=== PATIENT | female | born 1985 | race Hispanic/Latino ===

== ENCOUNTER 2018-07-30 05:57 | Emergency (ER) | payer OTHER ==
[2018-07-30 06:04] VITALS: O2SAT 100
[2018-07-30] MEDS ORDERED: Sodium Chloride 0.9% 1,000 ML IV STA ×2 (06:20→11:33)
[2018-07-30 06:41] LABS: BASO % 0.2 % (0.0-2.0); EOS # 0.1 K/uL (0.0-0.7); EOS % 0.9 % (0.0-4.0); HEMOGLOBIN 14.5 g/dL (12.0-16.0); LYMPH # 0.8 K/uL (1.0-4.3); LYMPH % 5.5 % (20.0-40.0); MEAN CELL VOLUME 89.4 fl (81.0-99.0); MEAN CORPUSCULAR HEMOGLOBIN 29.3 pg (27.0-31.0); MEAN CORPUSCULAR HGB CONC 32.8 g/dL (33.0-37.0); MONO # 1.3 K/uL (0.0-0.8); MONO % 8.7 % (0.0-10.0); NEUT % 84.7 % (50.0-75.0); NRBC % 0.1 % (0.0-0.0); PLATELET COUNT 293 K/uL (130-400); RBC 4.95 Mil/uL (3.80-5.20); RED CELL DISTRIBUTION WIDTH 13.5 % (11.5-14.5); WHITE BLOOD COUNT 15.3 K/uL (4.8-10.8)
[2018-07-30 06:49] LABS: ALB/GLOB RATIO 1.2 (1.0-2.1); ALBUMIN 4.1 g/dL (3.5-5.0); ALT/SGPT 39 U/L (9-52); AST/SGOT 24 U/L (14-36); BLOOD UREA NITROGEN 15 mg/dl (7-17); CALCIUM 8.7 mg/dL (8.4-10.2); GFR NON-AFRICAN AMERICAN > 60
--- NOTE | 2018-07-30 07:24 | ED PDOC ---
HPI: Abdomen Time Seen by Provider: 07/30/18 07:04 Chief Complaint (Nursing): Abdominal Pain Chief Complaint (Provider): Abdominal Pain History Per: Patient History/Exam Limitations: no limitations Onset/Duration Of Symptoms: Hrs (@last night) Current Symptoms Are (Timing): Still Present Location Of Pain/Discomfort: Epigastric Quality Of Discomfort: Cramping Associated Symptoms: Nausea, Vomiting, Diarrhea. denies: Fever Additional Complaint(s): Bhumi Bazan is a 33 year old female with a past medical history of GERD, who presents to the emergency department, complaining of abdominal pain, associated with nausea, vomiting and diarrhea, onset was last night. The pain is located in the epigastric area and crampy in nature. Patient reports that she was eating mozzarella sticks, chicken fingers, wings and beer for dinner last night. She denies having any fever or bloody stool. PMD: no provider Past Medical History Reviewed: Historical Data, Nursing Documentation, Vital Signs Vital Signs: Last Vital Signs Temp 98.7 F 07/30/18 05:59 Pulse 94 H 07/30/18 05:59 Resp 22 07/30/18 05:59 BP 114/88 07/30/18 05:59 Pulse Ox 100 07/30/18 05:59 - Medical History PMH: GERD - Surgical History Surgical History: No Surg Hx - Family History Family History: States: Unknown Family Hx - Home Medications Home Medications: Ambulatory Orders Medication Instructions Recorded Dicyclomine [Dicyclomine HCl] 10 mg PO Q8 #10 cap 07/30/18 Famotidine [Pepcid] 20 mg PO Q12 #20 tab 07/30/18 Ondansetron [Zofran] 4 mg PO Q8H #10 tab 07/30/18 - Allergies Allergies/Adverse Reactions: Allergies Allergy/AdvReac Type Severity Reaction Status Date / Time amoxicillin Allergy SWELLING Verified 07/30/18 06:01 peanut Allergy SHORTNESS Verified 07/30/18 06:01 OF BREATH Review of Systems ROS Statement: Except As Marked, All Systems Reviewed And Found Negative Constitutional: Negative for: Fever Gastrointestinal: Positive for: Nausea, Vomiting, Abdominal Pain, Diarrhea. Negative for: Melena, Hematochezia Physical Exam - Reviewed Nursing Documentation Reviewed: Yes Vital Signs Reviewed: Yes - Physical Exam Appears: Positive for: Non-toxic, No Acute Distress Head Exam: Positive for: ATRAUMATIC, NORMOCEPHALIC Skin: Positive for: Normal Color, Warm, Dry Eye Exam: Positive for: Normal appearance, EOMI, PERRL ENT: Positive for: Normal ENT Inspection Neck: Positive for: Normal, Painless ROM, Supple Cardiovascular/Chest: Positive for: Regular Rate, Rhythm. Negative for: Murmur Respiratory: Positive for: Normal Breath Sounds. Negative for: Respiratory Di stress Gastrointestinal/Abdominal: Positive for: Tenderness (epigastric and bilateral lower quadrant tenderness) Back: Positive for: Normal Inspection. Negative for: L CVA Tenderness, R CVA Tenderness, Vertebral Tenderness Extremity: Positive for: Normal ROM. Negative for: Pedal Edema, Deformity Neurologic/Psych: Positive for: Alert, Oriented (x3) - Laboratory Results Result Diagrams: 07/30/18 06:20 07/30/18 06:20 - ECG O2 Sat by Pulse Oximetry: 100 (RA) Pulse Ox Interpretation: Normal - Progress Re-evaluation Time: 14:16 Condition: Improved (Pain improved, no vomiting) Medical Decision Making Medical Decision Making: Time: 713 Impression: abdominal pain, considering Gastritis vs. Peptic ulcer disease Plan: Will order Pepcid, Zofran, IV fluids and will order CT abd/pelvis to rule out other pathology including diverticulitis and colitis. --CT abd and pelvis IV contrast --Lipase --Cbc with differential --Bentyl 10 mg PO --Pepcid 20 mg IVP --Sodium chloride 1,000 ml --Zofran [address] abd/pelvis FINDINGS: LOWER THORAX: Unremarkable. LIVER: In the posterior segment of the right hepatic lobe superiorly a 1.6 cm hyperdensity similar to the enhancement of other vessels in the area. However no tracking of a vessel can be corroborated here-no precontrast enhanced images are available. A consideration is a enhancing hemangioma. However no prior studies to assess for stability is available. Correlation with the right upper quadrant ultrasound targeted to the liver is advised. No ductal dilatation. GALLBLADDER AND BILE DUCTS: Unremarkable. PANCREAS: Unremarkable. No gross lesion or ductal dilatation. SPLEEN: Unremarkable. ADRENALS: Unremarkable. No mass. KIDNEYS AND URETERS: Unremarkable. No hydronephrosis. No solid mass. VASCULATURE: Unremarkable. No aortic aneurysm. No aortic atherosclerotic calcification or mural plaque present. BOWEL: . No obstruction. No gross mural thickening. A diffuse trace enteritis is not excluded on this exam. Correlate clinically APPENDIX: The appendix is not identified. No pericecal inflammatory changes are noted. PERITONEUM: No significant appearing free fluid. No free air. LYMPH NODES: Unremarkable. No enlarged lymph nodes. BLADDER: Unremarkable. REPRODUCTIVE: Uterus appears unremarkable. There is mild bilateral form this to each adnexa this can be seen with bilateral benign ovarian follicular cystic changes-if indicated, consider correlation with pelvic ultrasound. BONES: No acute fracture. OTHER FINDINGS: None. IMPRESSION: No bowel obstruction or free air. The appendix is not identified. However no CT evidence of pericecal inflammatory changes noted. No diverticulitis seen. Nonspecific appearance to the small bowel-a a minimal diffuse enteritis cannot be excluded. For this correlate clinically. A 1.6 cm posterior segment right hepatic lobe lesion is noted. This may represent a hemangioma. No precontrast enhanced images are available. Correlate clinically with any earlier outside exams-perhaps abdominal ultrasounds or CT studies to assess stability. If no such exams exist in this no positive oncological history, consider correlation with liver ultrasound-this could therefore be utilize for ultrasound baseline and continuous follow-up to ensure stability. Benign etiology based on the available history at this time is favored. Another consideration would be MRI of the liver without with contrast enhancement for characterization. Clinical follow-up recommended. Scribe Attestation: Documented by Rex Farias, acting as a scribe for Laureano Jeffrey MD. Provider Scribe Attestation: All medical record entries made by the Scribe were at my direction and personally dictated by me. I have reviewed the chart and agree that the record accurately reflects my personal performance of the history, physical exam, medical decision making, and the department course for this patient. I have also personally directed, reviewed, and agree with the discharge instructions and disposition. Disposition - Clinical Impression Clinical Impression: Gastroenteritis, Hemangioma - Patient ED Disposition Is Patient to be Admitted: No - Disposition Referrals: Dwight Galarza MD, PhD [Staff Provider] - Disposition: Routine/Home Disposition Time: 14:17 Condition: FAIR Prescriptions: Dicyclomine [Dicyclomine HCl] 10 mg PO Q8 #10 cap Famotidine [Pepcid] 20 mg PO Q12 #20 tab Ondansetron [Zofran] 4 mg PO Q8H #10 tab Instructions: Gastroenteritis (ED) Forms: [employer] (French)
[2018-07-30 07:47] LABS: LIPASE 60 U/L (23-300)
[2018-07-30] MEDS ORDERED: Iohexol 300 100 ML IJ ONE (08:12)
[2018-07-30] MEDS ORDERED: Sodium Chloride 0.9% 50 ML IV ONE (08:13)
[2018-07-30 09:59] LABS: EOSINOPHIL 1 % (0-7); LYMPHOCYTE 8 % (20-50); MONOCYTE 11 % (0-10); NEUTROPHIL 80 % (42-75); TOTAL CELLS COUNTED 100
[2018-07-30 10:00] LABS: PLATELET ESTIMATE NORMAL (NORMAL)
--- NOTE | 2018-07-30 11:26 | CT ---
Date of service: 07/30/2018 PROCEDURE: CT Abdomen and Pelvis with contrast HISTORY: Abd pain COMPARISON: None. TECHNIQUE: Contrast dose: 95 cc Omnipaque 300 Radiation dose: Total exam DLP = 664.19 mGy-cm. This CT exam was performed using one or more of the following dose reduction techniques: Automated exposure control, adjustment of the mA and/or kV according to patient size, and/or use of iterative reconstruction technique. FINDINGS: LOWER THORAX: Unremarkable. LIVER: In the posterior segment of the right hepatic lobe superiorly a 1.6 cm hyperdensity similar to the enhancement of other vessels in the area. However no tracking of a vessel can be corroborated here-no precontrast enhanced images are available. A consideration is a enhancing hemangioma. However no prior studies to assess for stability is available. Correlation with the right upper quadrant ultrasound targeted to the liver is advised. No ductal dilatation. GALLBLADDER AND BILE DUCTS: Unremarkable. PANCREAS: Unremarkable. No gross lesion or ductal dilatation. SPLEEN: Unremarkable. ADRENALS: Unremarkable. No mass. KIDNEYS AND URETERS: Unremarkable. No hydronephrosis. No solid mass. VASCULATURE: Unremarkable. No aortic aneurysm. No aortic atherosclerotic calcification or mural plaque present. BOWEL: . No obstruction. No gross mural thickening. A diffuse trace enteritis is not excluded on this exam. Correlate clinically APPENDIX: The appendix is not identified. No pericecal inflammatory changes are noted. PERITONEUM: No significant appearing free fluid. No free air. LYMPH NODES: Unremarkable. No enlarged lymph nodes. BLADDER: Unremarkable. REPRODUCTIVE: Uterus appears unremarkable. There is mild bilateral form this to each adnexa this can be seen with bilateral benign ovarian follicular cystic changes-if indicated, consider correlation with pelvic ultrasound. BONES: No acute fracture. OTHER FINDINGS: None. IMPRESSION: No bowel obstruction or free air. The appendix is not identified. However no CT evidence of pericecal inflammatory changes noted. No diverticulitis seen. Nonspecific appearance to the small bowel-a a minimal diffuse enteritis cannot be excluded. For this correlate clinically. A 1.6 cm posterior segment right hepatic lobe lesion is noted. This may represent a hemangioma. No precontrast enhanced images are available. Correlate clinically with any earlier outside exams-perhaps abdominal ultrasounds or CT studies to assess stability. If no such exams exist in this no positive oncological history, consider correlation with liver ultrasound-this could therefore be utilize for ultrasound baseline and continuous follow-up to ensure stability. Benign etiology based on the available history at this time is favored. Another consideration would be MRI of the liver without with contrast enhancement for characterization. Clinical follow-up recommended.
[2018-07-30 15:08] VITALS: BP 122/76; PULSE 85; RESP 18; TEMP 99
--- NOTE | 2018-07-30 15:14 | US ---
Date of service: 07/30/2018 HISTORY: Liver abnormality on CT COMPARISON: CT abdomen and pelvis performed earlier the same day. TECHNIQUE: Sonographic evaluation of the right upper quadrant of the abdomen. FINDINGS: LIVER: Measures 18.3 cm in length. Normal echogenicity of the liver parenchyma. There is a 1.7 x 1.8 x 1.4 cm well-circumscribed round homogeneously hyperechoic lesion in the posterior right hepatic lobe. There is no significant central flow on color Doppler imaging. No intrahepatic bile duct dilatation. GALLBLADDER: There are no gallstones, wall thickening or pericholecystic fluid. The sonographic Mcguire's sign is negative. COMMON BILE DUCT: Measures 4.5 mm. No stones. No dilatation. PANCREAS: Unremarkable as visualized. No mass. No ductal dilatation. RIGHT KIDNEY: Measures 10.3 cm in length. Normal echogenicity. No calculus, mass, or hydronephrosis. AORTA: No aneurysmal dilatation. IVC: Unremarkable. OTHER FINDINGS: None . IMPRESSION: 1.7 x 1.8 x 1.4 cm round lesion in the posterior right hepatic lobe corresponding to the abnormality seen on CT scan is statistically most compatible with a hemangioma.
== END 2018-07-30 15:27 | disposition home or self-care (01) ==
LOC: H.ER 05:57
DX: K52.9 Noninfective gastroenteritis and colitis, unspecified (principal); D18.00 Hemangioma unspecified site
CPT/HCPCS: 74177; 76705; 80053; 81025; 83690; 84702; 85025; 96361; 96374; 96375; 99284; J2270; J2405; J7030; Q9967